=== PATIENT | male | born 1945 | race Two or more races ===

== ENCOUNTER 2021-12-24 05:29 | Day surgery (SDC) | payer MEDICARE ==
[2021-12-14 14:30] LABS: BASOPHILS % (AUTO) 0.3 % (0-1); EOSINOPHILS # (AUTO) 0.3 X10'3 (0-0.9); EOSINOPHILS % (AUTO) 4.7 % (0-6); LYMPHOCYTES # (AUTO) 0.9 X10'3 (1.1-4.8); LYMPHOCYTES % (AUTO) 15.8 % (21-51); MEAN CORPUSCULAR HEMOGLOBIN 34.8 PG (27.0-31.0); MEAN CORPUSCULAR VOLUME 99.6 FL (78-98); MEAN PLATELET VOLUME 7.2 FL (7.4-10.4); MONOCYTES # (AUTO) 0.4 X10'3 (0-0.9); MONOCYTES % (AUTO) 7.1 % (2-12); NEUTROPHILS % (AUTO) 72.1 % (42-75); PRE OP HEMATOCRIT 36.4 % (42.0-52.0); PRE OP HEMOGLOBIN 12.7 g/dL (14.0-17.9); PRE OP PLATELET COUNT 124 X10'3 (140-440); RED BLOOD COUNT 3.66 X10'6 (4.70-6.10); RED CELL DISTRIBUTION WIDTH 12.7 % (11.5-14.5)
[2021-12-14 14:31] LABS: CLARITY,URINE CLEAR (Clear); COLOR,URINE YELLOW (Yellow); GLUCOSE, URINE NEGATIVE (Neg); KETONES,URINE NEGATIVE (Neg); LEUKOCYTE ESTERASE ,URINE NEGATIVE (Neg); NITRITES, URINE NEGATIVE (Neg); OCCULT BLOOD,URINE NEGATIVE (Neg); PH,URINE 5.5 (4.8-8.0); PROTEIN,URINE NEGATIVE (Neg); UROBILINOGEN,URINE 0.2 E.U/dL (0.2-1.0)
[2021-12-14 14:38] LABS: UA COLLECTION TYPE CLN CATCH MIDSTREAM
[2021-12-14 14:44] LABS: ALBUMIN 4.3 G/DL (3.4-5.0); ALBUMIN/GLOBULIN RATIO 1.3 (1.1-1.5); ALKALINE PHOSPHATASE 235 IU/L (46-116); BLOOD UREA NITROGEN 23 MG/DL (7-18); BUN/CREATININE RATIO 22.1 (5.4-32.0); CALCIUM 9.2 MG/DL (8.5-10.1); CHLORIDE 100 MMOL/L (99-107); CREATININE 1.04 MG/DL (0.60-1.10); PRE OP ALT 51 U/L (30-65); PRE OP ANION GAP 12 (8-16); PRE OP AST 25 U/L (10-37); PRE OP BILIRUB, TOTAL 0.5 MG/DL (0.0-1.0); PRE OP GLUCOSE 171 MG/DL (70-104); PRE OP POTASSIUM 3.4 MMOL/L (3.4-5.1); PRE OP SODIUM 135 MMOL/L (135-145); TOTAL CARBON DIOXIDE 23.1 MMOL/L (24-32); TOTAL PROTEIN 7.5 G/DL (6.4-8.2); eGFR 70 ML/MIN
[2021-12-24] VITALS (13 sets, daily range): BP systolic 112–122; BP diastolic 61–69
[~2021-12-24] VITALS: Ht 167.6 cm; Wt 74.9 kg
[~2021-12-24 05:29] MED LIST: CICL6.6S22 TOP; DOXE10CA3 PO; FERR324T23 PO; FOLI1TAB27 PO; HYDR25TA4 PO; IBUP-24 PO; LISI20TA28 PO; MELA1TAB17 PO; METF-1203 PO; NIFE-34 PO; OMEP20CA16 PO; TERA10CA4 PO; ringers solution, lacted 1,000 ML IV SCH
[2021-12-24] MEDS ORDERED: ceFAZolin inj. 2,000 MG in dextrose 5%-water 100 ML IV ONE (05:30)
[2021-12-24] MEDS ORDERED: famotidine 20mg tablet PO ONE (05:30)
[2021-12-24] MEDS ORDERED: bacitracin 15gm ointment TP ONE ×2 (06:40→08:59)
[2021-12-24] MEDS ORDERED: ROPIVAcaine 0.5% (5mg/ml) 30ml vial ONE (07:07)
[2021-12-24] MEDS ORDERED: fentaNYL/PF 50MCG/1 ML 2ML syringe ONE ×2 (07:09→09:59)
[2021-12-24] MEDS ORDERED: propofol inj 20 ML IV ONE (07:11)
[2021-12-24] MEDS ORDERED: LIDOcaine 2% (20mg/ml) 5ml vial ONE (07:11)
[2021-12-24] MEDS ORDERED: sevoflurane 250ml liquid IH ONE (07:22)
[2021-12-24] MEDS ORDERED: dexamethasone sod phosphate 4mg/ml inj. ONE (07:46)
[2021-12-24] MEDS ORDERED: ePHEDrine 50MG/ML INJ. ONE (07:58)
[2021-12-24] MEDS ORDERED: fentaNYL/PF 50MCG/1 ML 2ML syringe IV PRN ×2 (08:20)
[2021-12-24] MEDS ORDERED: ondansetron/PF 4mg/2ml inj IV PRN (08:20)
[2021-12-24] MEDS ORDERED: ringers solution, lacted 1,000 ML IV SCH (08:20)
[2021-12-24] MEDS ORDERED: labetalol 20mg/4ml (5mg/ml) syringe IV PRN (08:20)
[2021-12-24] MEDS ORDERED: morphine 4 MG/ML inj SYRINge IV PRN (08:20)
[2021-12-24] MEDS ORDERED: hydrALAZINE 20mg/ml inj. IV PRN (08:20)
[2021-12-24] MEDS ORDERED: morphine 2 MG/ML inj. syringe IV PRN (08:20)
[2021-12-24] MEDS ORDERED: ondansetron/PF 4mg/2ml inj ONE (09:22)
--- NOTE | 2021-12-24 10:45 | NUR ---
Received from OR via [facility], accompanied by Anesthesiologist-DR. DELEON report GIVEN PATIENT WAKING UP, NO S/S OF PAIN, V/S WNL, SCD ON, 20G TO RUE, RIGHT FOOT WRAPPED -CDI, ELEVATED, TOES PINK AND WARM, POPLITEAL PULSE PRESENT
--- NOTE | 2021-12-24 12:25 | NUR ---
PT DID GREAT, VSS, STILL DENIES PAIN, DRSG-CDI WITH PINK WARM TOES AND +POPLITEAL PULSE TO RIGHT FOOT, ABLE TO GET SELF UP AND GET DRESSED-NWB TO THE RIGHT FOOT, PIV D/CD-CANULA INTACT, DISCUSSED GO HOME INSTRUCTIONS-ALL QUESTIONS ANSWERED, PT TAKEN VIA W/C TO VEHICLE FOR TRANSPORT HOME WITH ALL BELONGINGS.
== END 2021-12-24 12:25 | disposition home or self-care (01) ==
LOC: PAS 05:29
PROVIDERS: ATTEND Podiatrist Foot & Ankle Surgery
DX: M19.071 Primary osteoarthritis, right ankle and foot (principal); K74.60 Unspecified cirrhosis of liver; G47.30 Sleep apnea, unspecified; E11.9 Type 2 diabetes mellitus without complications; G89.18 Other acute postprocedural pain; K21.9 Gastro-esophageal reflux disease without esophagitis; D64.9 Anemia, unspecified; Z86.19 Personal history of other infectious and parasitic diseases; Z79.899 Other long term (current) drug therapy; Z98.890 Other specified postprocedural states; Z20.822 Contact with and (suspected) exposure to COVID-19
CPT/HCPCS: 28737; 28740; 36415; 64445; 64450; 73620; 76942; 80053; 81003; 82948; 85025; 87811; 93005; 93306; A6223; C1713; J0690; J1100; J2405; J2704; J2795; J3010; J3490; J7030; J7060; J7120; Z7506; Z7508; Z7512; 76000; A4215; A4618; A6449; A7000